=== PATIENT | female | born 1990 | race Caucasian/White ===

== ENCOUNTER 2017-06-09 13:43 | Outpatient (CLI) | payer BC ==
[2017-06-09] MEDS ORDERED: ACETAMINOPHEN 325 MG TAB PO PRN (14:15)
[2017-06-10] MEDS ORDERED: PRENTAB26 PO ×2 (01:04)
[2017-06-10] MEDS ORDERED: FLUT0.15 ×2 (01:05)
[2017-06-10] MEDS ORDERED: ALBU4TAB10 PO (01:06)
== END 2017-06-09 16:45 | disposition home or self-care (01) ==
LOC: C.OPB 13:43 → C.LD 13:44 → C.OPB 16:45 → EDSTATUS 06-12 13:42
PROVIDERS: ATTEND Obstetrics & Gynecology
DX: O62.9 Abnormality of forces of labor, unspecified (principal); Z3A.39 39 weeks gestation of pregnancy; Z22.330 Carrier of Group B streptococcus

== ENCOUNTER 2017-06-10 00:11 | Inpatient (IN) | payer BC ==
[~2017-06-10] VITALS: Ht 162.6 cm; Wt 86.5 kg
[2017-06-10] MEDS ORDERED: LACTATED RINGER'S 1000ML 1,000 ML IV PRN (00:23)
[2017-06-10] MEDS ORDERED: LACTATED RINGER'S 1000ML 1,000 ML IV SCH ×2 (00:23→08:14)
[2017-06-10] MEDS ORDERED: PENICILLIN G POTASSIUM IV 6 MU in DEXTROSE 5% 250ML 250 ML IV ONE (00:30)
[2017-06-10] MEDS ORDERED: PENICILLIN G POTASSIUM IV 3 MU in DEXTROSE 5% 100ML 100 ML IV PRN (00:30)
[2017-06-10] MEDS ORDERED: EpHEDrine SULFATE INJ 50 MG/ML AMP ONE (00:49)
[2017-06-10] MEDS ORDERED: FENTANYL CITRATE INJ 50 MCG/1 ML 2 ML VIAL ONE (00:49)
[2017-06-10] MEDS ORDERED: BUPIVACAINE 0.25% 30 ML VIAL ONE (00:49)
[2017-06-10] MEDS ORDERED: FENTANYL 2MCG/ML ROPIV 1.25MG/ML 100ML BAG EPI ONE (00:49)
[2017-06-10 00:55] LABS: HEMATOCRIT 33.4 % (37-47); MEAN CELL VOLUME 85.6 fL (80-100); MEAN CORPUSCULAR HEMOGLOBIN 29.2 pg (25-34); MEAN CORPUSCULAR HGB CONC 34.1 g/dl (32-36); MEAN PLATELET VOLUME 9.5 fL (7.4-10.4); PLATELET COUNT 225 K/uL (130-400); WHITE BLOOD COUNT 9.45 K/uL (4.8-10.8)
[2017-06-10] MEDS ORDERED: PRENTAB26 PO ×2 (01:04)
[2017-06-10] MEDS ORDERED: FLUT0.15 ×2 (01:05)
[2017-06-10 01:06] VITALS: Ht 162.6 cm; Wt 86.5 kg
[2017-06-10] MEDS ORDERED: ALBU4TAB10 PO (01:06)
[2017-06-10] MEDS ORDERED: NALOXONE HCL INJ 1 MG in SODIUM CHLORIDE 0.9% 1000ML 1,000 ML IV PRN (01:51)
[2017-06-10] MEDS ORDERED: LACTATED RINGER'S 1000ML 500 ML IV PRN (01:51)
[2017-06-10] MEDS ORDERED: ONDANSETRON INJ 2 MG/ML 2 ML VIAL IV PRN (02:00)
[2017-06-10] MEDS ORDERED: NALBUPHINE HCL INJ 10 MG/ML AMP IV PRN (02:00)
[2017-06-10] MEDS ORDERED: NALOXONE HCL INJ 0.4 MG/1 ML VIAL/CARP IV PRN (02:00)
[2017-06-10] MEDS ORDERED: DiphenhydrAMINE HCL 50 MG/ML VIAL IV PRN (02:00)
[2017-06-10] MEDS ORDERED: EpHEDrine SULFATE INJ 50 MG/ML AMP IV PRN (02:00)
[2017-06-10] MEDS ORDERED: FENTANYL 2MCG/ML ROPIV 1.25MG/ML 100ML BAG EPI PRN (02:00)
[2017-06-10] MEDS ORDERED: OXYTOCIN 30 UNITS/500ML NSS IV ONE (07:31)
[2017-06-10] MEDS ORDERED: MINERAL OIL 30 ML UDC ONE (07:44)
[2017-06-10] MEDS ORDERED: MISOPROSTOL 200 MCG TAB ONE (08:04)
[2017-06-10] MEDS ORDERED: METHYLERGONOVINE MALEATE 0.2 MG/ML AMP ONE (08:05)
[2017-06-10] MEDS ORDERED: OXYCODONE/ACETAMINOPHEN 5-325 TAB PO PRN (08:15)
[2017-06-10] MEDS ORDERED: OXYTOCIN 30 UNITS/500ML NSS IV PRN (08:15)
[2017-06-10] MEDS ORDERED: ACETAMINOPHEN 325 MG TAB PO PRN (08:15)
[2017-06-10] MEDS ORDERED: LANOLIN OINT EXT PRN ×2 (08:15)
[2017-06-10] MEDS ORDERED: METHYLERGONOVINE MALEATE 0.2 MG/ML AMP IM ONE (08:15)
[2017-06-10] MEDS ORDERED: BENZOCAINE 20% AER SPR 82.5 GM CAN EXT PRN (08:15)
[2017-06-10] MEDS ORDERED: HYDROCORTISONE ACETATE 25 MG SUPP PR PRN (08:15)
[2017-06-10] MEDS ORDERED: SUPERCREAM 0.870 % 15GM JAR EXT PRN (08:15)
[2017-06-10] MEDS ORDERED: MISOPROSTOL 200 MCG TAB PR SCH (08:15)
[2017-06-10] MEDS ORDERED: NURSING VERBAL MED ORDER ONE ×2 (09:45)
[2017-06-10] MEDS ORDERED: ALBUTEROL HFA 8 GM INHALER INH PRN (10:00)
--- NOTE | 2017-06-10 10:04 | DELIVERY SUMMARY ---
DATE OF OPERATION: 06/10/2017 TIME OF DELIVERY OF BABY: 0748 a.m. TIME OF DELIVERY OF PLACENTA: 0802 a.m. DETAILS OF DELIVERY: The patient was found to be fully dilated and desired to push. She pushed for only 2 contractions and delivery of the head without difficulty. Shoulders were delivered with minimal traction. The baby was handed off to the mother. Mouth and nose were suctioned. Cord was clamped x2 and cut at minute and cord blood was obtained and perineum and vagina were checked for lacerations. There was a small second-degree laceration in the posterior fourchette, which was repaired with 2-0 Vicryl in a running locked fashion. Excellent hemostasis was achieved and there was a very small first-degree laceration at the anterior region of labia minora superior to the urethral opening. It was repaired with 3-0 Vicryl on an SH needle with [id number] stitch and then placenta was found to be in the vagina and delivered spontaneously as intact and complete. Uterus was explored and found to have blood clots. Massage was started. IV oxytocin infusion was started. All the clots were emptied. No remains of placenta noted. Placenta was intact with intact membranes. Then 800 mcg of Cytotec was placed in the rectum and the patient was also given 0.2 mg of Methergine IM x1 and the uterus firm. EBL was than 500ml. Mom and baby tolerated the procedure well. Sponge, lap, needle and instruments were correct x2. Baby was a viable male infant. Apgars 9/10. Weight is 3335 gr. No complications happened and I was present during the whole procedure. I attest to the content of the Intraoperative Record and any orders documented therein. Any exceptions are noted below. MTDD
[2017-06-10 11:10] VITALS: BP 117/80; PULSE 80; TEMP 36.7
[2017-06-10] MEDS: METHYLERGONOVINE MALEATE 0.2 MG TAB PO SCH ×3 (12:31→20:05)
[2017-06-10 16:00] VITALS: BP 126/83; PULSE 76; TEMP 36.5
[2017-06-10] MEDS: DOCUSATE SODIUM 100 MG CAP PO SCH (20:06)
[2017-06-10 20:10] VITALS: BP 129/88; PULSE 73; TEMP 36.6
[2017-06-10] MEDS: IBUPROFEN 600 MG TAB PO PRN (22:20)
[2017-06-10 23:50] VITALS: BP 132/90; PULSE 76; TEMP 36.5; O2SAT 98
[2017-06-11] MEDS ORDERED: MUCINEX D PO PRN
[2017-06-11 03:25] VITALS: BP 126/91; PULSE 83; TEMP 37.1; O2SAT 99
[2017-06-11 07:15] LABS: HEMATOCRIT 32.5 % (37-47)
[2017-06-11 08:00] VITALS: BP 114/79; PULSE 92; TEMP 36.6
[2017-06-11] MEDS: PRENATAL VITAMIN TAB PO SCH (08:18)
[2017-06-11] MEDS: FERROUS SULFATE 325 MG TAB PO SCH (08:18)
[2017-06-11] MEDS: METHYLERGONOVINE MALEATE 0.2 MG TAB PO SCH (08:19)
[2017-06-11] MEDS: FLUTICASONE PROPIONATE NA SPR 16 GM BTL SCH (08:19)
[2017-06-11] MEDS: DOCUSATE SODIUM 100 MG CAP PO SCH ×2 (08:19→20:52)
[2017-06-11] MEDS ORDERED: MEASLES, MUMPS & RUBELLA VIRUS VIAL SQ. ONE (09:00)
--- NOTE | 2017-06-11 09:55 | OB/GYN Progress Note ---
RAIL EXPRESS CLERK Progress Note Date of Service Jun 11, 2017. Subjective conversation w/ patient, physical exam Ambulation: ambulating normally Voiding: no voiding problems Passing Gas: Yes Diet Tolerance: Regular Diet Lochia: Small Feeding Type: Bottle Feeding Objective Vital Signs Date Time Temp Pulse Resp B/P (MAP) Pulse Ox O2 Delivery O2 Flow Rate FiO2 06/11/17 08:00 36.6 92 18 114/79 (91) Room Air 06/11/17 03:25 37.1 83 16 126/91 (103) 99 Room Air 06/10/17 23:50 98 Room Air 06/10/17 23:50 36.5 76 18 132/90 (104) 98 Room Air 06/10/17 20:10 36.6 73 16 129/88 (102) Room Air 06/10/17 16:00 36.5 76 18 126/83 (97) Room Air 06/10/17 16:00 Room Air 06/10/17 11:10 36.7 80 22 117/80 (92) Physical Exam General Appearance: WELL-APPEARING, NO APPARENT DISTRESS Abdomen: non tender, soft Fundus: Firm Extremities: normal range of motion, normal inspection, no pedal edema, no calf tenderness Laboratory Results Last 24 Hours Test 06/11/17 06:54 Hemoglobin 10.9 g/dL Hematocrit 32.5 % Assessment and Plan Post- Day Number: 1 Continue Routine Care: tent d/c in AM
[2017-06-11] MEDS: IBUPROFEN 600 MG TAB PO PRN (10:02)
[2017-06-11 16:00] VITALS: BP 133/86; PULSE 87; TEMP 36.6
[2017-06-11] MEDS ORDERED: BISACODYL 5 MG TABEC PO SCH (20:00)
[2017-06-11 23:20] VITALS: BP 130/87; PULSE 79; TEMP 36.6
[2017-06-12 06:00] LABS: HEMATOCRIT 30.8 % (37-47); MEAN CELL VOLUME 88.3 fL (80-100); MEAN CORPUSCULAR HEMOGLOBIN 29.5 pg (25-34); MEAN CORPUSCULAR HGB CONC 33.4 g/dl (32-36); MEAN PLATELET VOLUME 9.1 fL (7.4-10.4); PLATELET COUNT 236 K/uL (130-400); RED BLOOD COUNT 3.49 M/uL (4.2-5.4); WHITE BLOOD COUNT 10.39 K/uL (4.8-10.8)
[2017-06-12] MEDS ORDERED: BISACODYL 10 MG SUPP PR PRN (07:00)
[2017-06-12] MEDS: DIPHTHERIA/TETANUS/PERTUSSIS 0.5 ML SYR/VIAL IM. ONE ×2 (07:29→12:00)
[2017-06-12] MEDS: PRENATAL VITAMIN TAB PO SCH (07:59)
[2017-06-12] MEDS: FLUTICASONE PROPIONATE NA SPR 16 GM BTL SCH (07:59)
[2017-06-12] MEDS: FERROUS SULFATE 325 MG TAB PO SCH (07:59)
[2017-06-12] MEDS: DOCUSATE SODIUM 100 MG CAP PO SCH (07:59)
[2017-06-12] MEDS ORDERED: MTR600X PO ×2 (11:00)
--- NOTE | 2017-06-12 11:01 | Discharge Instructions ---
Discharge Instructions Date of Service Jun 12, 2017. Admission Reason for Admission: Uterine Contractions At Greater Than 20 Weeks Gest Discharge Discharge Diagnosis / Problem: Vaginal Delivery Discharge Goals Goal(s): Routine recovery after delivery Medications Continue Dispensed Medications: supercream, dermaplast, tucks, lansinoh Activity Recommendations Activity Limitations: per Instructions/Follow-up section . Instructions / Follow-Up Instructions / Follow-Up ACTIVITY RECOMMENDATIONS: * Gradual return to full activity over the next 2-3 weeks. * No lifting - nothing heavier than baby over the next 2-3 weeks. * Do not engage in vigorous exercise, sexual activity or sports until cleared by your physician. * Do not drive or operate any motorized equipment until cleared by your physician. * You may shower/bathe daily. BREAST CARE: If you are not breast feeding: * Wear a supportive bra 24 hours a day for one to two weeks. * Avoid stimulating your breasts and nipples as much as possible during the first few weeks after delivery. * When taking a shower, have the warm water hit your back, not breasts. * When your breasts feel full, apply ice packs. Usually three to four times a day helps ease the discomfort. * Take a mild pain medication (Tylenol/Motrin) when you are uncomfortable. If breast feeding: * Use breast milk to lubricate nipples. Lansinoh cream may be used for sore nipples. You do not need to remove cream prior to breast feeding. If using a different brand of cream, check the label for directions regarding removal of cream prior to nursing. * Wear a supportive bra. * If having problems with breasts or breast feeding, call a erp consultant or your health care provider. EPISIOTOMY CARE: After delivery, if you have an episiotomy (stitches), the following steps will ease discomfort and aid healing. * For the first 24 hours after delivery, place ice packs next to your episiotomy to help reduce swelling. * After the first 24 hour-period, sitz baths, either portable or in the tub, are suggested. A shower with a shower arm sprayed over the episiotomy may be comforting. * [place] care should be done after each voiding and bowel movement. Squirt warm water from a plastic bottle over the perineum (region of the body between the anus and urinary opening) and pat dry. * Use Dermoplast to ease discomfort. Shake container. [place] directly over the episiotomy. * Place a Tucks on a clean sanitary pad next to your episiotomy. OVER THE COUNTER MEDICATION: * For discomfort or pain, you may use Acetaminophen (Tylenol), Ibuprofen (Advil ), or Naproxen (Aleve) following the package directions. * For constipation you may use Colace following the package directions. SPECIAL CARE INSTRUCTIONS: When you are discharged from the hospital, it is important for you to follow the instructions listed below: * During the first week at home, you should be able to care for yourself and your baby. In addition, the usual light household activities are encouraged. * Limit your activities to the way you feel. Do not try to clean the house or move furniture. Be sensible. * If you actively engage in sports and have done so up until the time of your delivery, you may resume these activities as soon as you feel able. This may take up to one month or even longer. Use good judgment. * Continue to take your vitamins for at least six weeks after the of your baby. * Your diet need not be limited unless you were on a special diet before your delivery. Breast-feeding mothers need around 2500 calories per day and at least 64-80 ounces of fluid per day (8 to 10 glasses). * You should eat foods from the four major food groups. Crash diets or fad diets are to be avoided. Eating lean meats, fresh fruits and vegetables, low-fat dairy products, high fiber foods and a regular exercise program, will help you get back to your pre- weight without putting your health at risk. * Constipation is sometimes a problem after delivery. Take a mild laxative as needed. If breast feeding, Milk of Magnesia is acceptable to use. You may use a suppository or Fleets enema if no episiotomy. * A daily shower or tub bath is suggested. Be sure to thoroughly and gently dry the perineum. * A bloody vaginal discharge will usually continue until around four weeks post . A small amount of bleeding may continue for as long as six weeks. Vaginal discharge changes from the bright red bleeding after delivery to pink then brownish and finally yellowish-pink before becoming white and disappearing. * Bleeding may increase with activity. Your first period may come in 4-8 weeks. If you are breast feeding, your period may be delayed even longer. * Halley (sex) can begin whenever both you and your partner feel comfortable and do not have any form of genital infection. It is recommended that you wait until after your return appointment and discuss with your physician. If you have questions, please talk to your health care practitioner. A condom should be used to prevent infection and . * Foreplay, gentle intercourse and lubrication is very important the first several times to prevent pain. A water-based lubricant such as K-Y jelly or Astroglide may be used. * Tampons may be used six weeks after delivery. * Douching should be avoided for 6 weeks after delivery. * If you have RH negative blood and your baby is RH positive, you will receive RHOGAM by injection prior to discharge. The nurse will give you a card to keep with you that has the date and place that you received RHOGAM after delivery. * During your care, you had a Rubella screen done to check for the presence of rubella antibodies in your blood. If your test was negative, you will receive a Rubella vaccine prior to discharge. This vaccine may cause a fever, soreness at the injection site and flu-like symptoms. If these symptoms persist, notify your health care practitioner. is not advised for three months after a Rubella vaccine. There is a higher chance of having a baby with defects if conceived within three months of getting the vaccine. * If you were discharged 24 hours from delivery or before 48 hours: Visiting nurses will come to your home 48 hours after discharge to assess you and your baby. The visiting nurse will meet with you while you are in the hospital to arrange a time and get directions to your home. * Verbalizes understanding of car seat law as reviewed with patient nursing. * Car Seat hand-out given and reviewed with patient by nursing. * Shaken baby information reviewed with patient by nursing. Call you doctor if: * Heavy bleeding (saturating several pads an hour) or passing clots the size of your fist. * A fever >101 degrees F (38.3 degrees C) on two occasions four hours apart and/or chills. * Unusual pain in the pelvic or vaginal areas. * "Baby Blues" lasting longer than two weeks. If you have any questions or concerns, call your health care practitioner at . FOLLOW-UP VISIT: * Please call the office at to schedule a 6 week examination. It is important you keep this appointment. * It is important for you to make arrangements for either yearly or twice yearly check-ups thereafter. Current Hospital Diet Patient's current hospital diet: Regular OB Diet Discharge Diet Recommended Diet: Regular OB Diet Pending Studies Studies pending at discharge: no Medical Emergencies . Who to Call and When: Medical Emergencies: If at any time you feel your situation is an emergency, please call 911 immediately. . Non-Emergent Contact Non-Emergency issues call your: Primary Care Provider, License Registration Examiner . . "Provider Documentation" section prepared by Fito Guthrie. . VTE Core Measure Inpt VTE Proph given/why not?: Treatment not indicated
--- NOTE | 2017-06-12 11:04 | OB/GYN Progress Note ---
ANALYTICAL DATA MINER Progress Note Date of Service Jun 12, 2017. Subjective conversation w/ patient Ambulation: ambulating normally Voiding: no voiding problems Passing Gas: Yes Diet Tolerance: Regular Diet Lochia: Small Feeding Type: Bottle Feeding Pain: 08/22 Notes: Doing well, no concerns. Has no pain. Tolerating regular diet. Ambulating without difficulty. Lochia minimal. Would like to go home today. Review of Systems Constitutional: No fever, No chills, No sweats, No weight loss, No weakness, No fatigue, No problem reported Respiratory: No cough, No sputum, No wheezing, No shortness of breath, No dyspnea on exertion, No dyspnea at rest, No hemoptysis, No problem reported Cardiac: No chest pain, No orthopnea, No PND, No edema, No claudication, No palpitations, No problem reported Abdomen: No pain, No nausea, No vomiting, No diarrhea, No constipation, No GI bleeding, No problem reported Female : No see HPI, No dysuria, No urinary frequency, No hematuria, No incontinence, No abnormal vaginal bleeding, No vaginal discharge, No problem reported Objective Vital Signs Date Time Temp Pulse Resp B/P (MAP) Pulse Ox O2 Delivery O2 Flow Rate FiO2 06/12/17 08:00 Room Air 06/11/17 23:20 36.6 79 20 130/87 (101) Room Air 06/11/17 23:20 Room Air 06/11/17 16:00 Room Air 06/11/17 16:00 36.6 87 16 133/86 (102) Room Air Laboratory Results Last 24 Hours Test 06/12/17 05:39 White Blood Count 10.39 K/uL Red Blood Count 3.49 M/uL Hemoglobin 10.3 g/dL Hematocrit 30.8 % Mean Corpuscular Volume 88.3 fL Mean Corpuscular Hemoglobin 29.5 pg Mean Corpuscular Hemoglobin Concent 33.4 g/dl RDW Standard Deviation 43.7 fL RDW Coefficient of Variation 13.7 % Platelet Count 236 K/uL Mean Platelet Volume 9.1 fL Assessment and Plan Post- Day Number: 2 Continue Routine Care: -D/C home today -F/U in 6 weeks.
[2017-06-12 12:00] VITALS: BP_DIAS 87; PULSE 79; TEMP 36.6
== END 2017-06-12 12:00 | disposition home or self-care (01) | DRG 775 ==
LOC: C.OPB 00:11 → C.LD 00:13 → C.OPB 00:27 → C.OBG 10:46
PROVIDERS: ADMIT Obstetrics & Gynecology; ATTEND Obstetrics & Gynecology
PROC: 0KQM0ZZ Repair Perineum Muscle, Open Approach (ICD-10-PCS; principal; 2017-06-10)
PROC: 10E0XZZ Delivery of Products of Conception, External Approach (ICD-10-PCS; principal; 2017-06-10)
DX: O70.1 Second degree perineal laceration during delivery (principal); O99.824 Streptococcus B carrier state complicating childbirth; Z37.0 Single live birth; Z3A.39 39 weeks gestation of pregnancy

== ENCOUNTER 2019-01-21 17:54 | Inpatient (IN) ==
[2019-01-21] MEDS: LACTATED RINGER'S 1,000 ML IV PRN ×2 (18:00→19:55)
[2019-01-21] MEDS ORDERED: PENICILLIN G POTASSIUM 3 MU in DEXTROSE 5% 100 ML IV PRN (18:05)
[2019-01-21] MEDS ORDERED: OXYTOCIN 30 UNITS/500 ML BAG IV PRN ×2 (18:05→23:02)
[2019-01-21] MEDS ORDERED: TERBUTALINE SULFATE 1 MG/ML VIAL SQ ONE (18:07)
--- NOTE | 2019-01-21 18:13 | History & Physical Report ---
Date of Service January 21, 2019 Assessment & Plan (1) Uterine contractions at greater than 20 weeks of gestation: 28 YO at 39.6 wks in early labor GBS + FHR reassuring Plan admit, monitor, labs, PCN for GBS Anticipate (2) GBS (group B Streptococcus carrier), +RV culture, currently : History of Present Illness Chief Complaint: Contractions Primary Care Provider: NO PCP Patient is a 28 yo at 39.6 wks , started to have ctxs this morning, got closer and more regular this afternoon She was in the office and had reactive NST, cervix was checkedx2 and changed from 3 to 4 cm No LOF/VB +FM Her has been uncomplicated except: 1) Asthma, mild, on albuterol prn 2) GBS + Allergies Allergy/AdvReac Type Severity Reaction Status Date / Time Sulfa (Sulfonamide Allergy Intermediate HIVES Verified 06/11/17 20:52 Antibiotics) Patient History OB History 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
[2019-01-21] MEDS ORDERED: PENICILLIN G POTASSIUM 6 MU in DEXTROSE 5% 250 ML IV ONE (18:30)
[2019-01-21] MEDS ORDERED: ePHEDrine sulfate 50 MG/ML AMP IV PRN (18:34)
[2019-01-21] MEDS ORDERED: ONDANSETRON INJ 2 MG/ML 2 ML VIAL IV PRN (18:34)
[2019-01-21] MEDS ORDERED: NALOXONE HCL 1 MG in SODIUM CHLORIDE 0.9% 1000ML 1,000 ML IV PRN (18:34)
[2019-01-21] MEDS ORDERED: NALOXONE HCL 0.4 MG/1 ML VIAL/CARP IV PRN (18:34)
[2019-01-21] MEDS ORDERED: DiphenhydrAMINE HCL 50 MG/ML VIAL IV PRN (18:34)
[2019-01-21] MEDS ORDERED: fentaNYL 2MCG/ML ROPIV 1.25MG/ML 100 ML BAG EPI PRN (18:34)
[2019-01-21] MEDS ORDERED: NALBUPHINE HCL INJ 10 MG/ML AMP IV PRN (18:34)
--- NOTE | 2019-01-21 18:35 | Anesthesiology Consultation ---
Date of Service January 21, 2019 Assessment & Plan (1) Encounter for pre-operative examination: Chart Review Chart Review: Patient NOT seen in Pre Admission Testing and Acceptable Risk for Labor Epidural Consults Requested none History Height/Weight Height: 5 ft 4 in Weight: 88.451 kg Allergies Allergy/AdvReac Type Severity Reaction Status Date / Time Sulfa (Sulfonamide Allergy Intermediate HIVES Verified 06/11/17 20:52 Antibiotics) Medications Home Medications Medication Instructions Recorded Confirmed Last Taken albuterol sulfate [Ventolin HFA] 1 inh INHALATION ONCE 01/21/19 01/21/19 01/20/19 23:00 Active Medications Generic Name Dose Route Start Last Admin Trade Name Freq PRN Reason Stop Dose Admin Lactated Ringer's 1,000 mls @ 150 mls/hr 01/21/19 18:05 01/21/19 18:00 Lr IV 01/23/19 18:04 150 mls/hr .[id number] PRN Administration L&D Protocol Protocol Penicillin G Potassium 6 mu/ 262 mls @ 262 mls/hr 01/21/19 18:30 01/21/19 18:51 Dextrose IV 01/21/19 19:29 262 mls/hr TODAY@1830 ONE Administration Past Medical History Medical History Asthma Exercise / Class Metabolic Activity II 4-5 Yardwork/Stairs/Walk up hill Past Surgical History none Past Anesthesia History No Hx of Anesthesia Complications, Malignant Hyperthermia and No Family Hx of Anesthesia Complications History of PONV No Hx of PONV and No Hx of Motion Sickness Social History Smoking Status: Never smoker Hx Alcohol Use: No Hx Substance Use: No Physical Exam Vital Signs Last Vital Signs Pulse 90 01/21/19 17:57 Resp 20 01/21/19 18:11 BP 138/80 01/21/19 17:57 Testing Laboratory Results 01/21/19 18:27
[2019-01-21 18:40] LABS: Hematocrit (blood only) 32.7 % (37-47); Hemoglobin 11.3 g/dL (12.0-16.0); Mean Corpuscular Hgb Conc 34.6 g/dL (32-36); Mean Corpuscular Volume 88.4 fL (80-100); Mean Platelet Volume 9.3 fL (7.4-10.4); Platelet Count 221 K/uL (130-400); RDW Coefficient of Variation 13.4 % (11.5-14.5); RDW Standard Deviation 43.6 fL (36.4-46.3); White Blood Count 9.36 K/uL (4.8-10.8)
[2019-01-21] MEDS ORDERED: BUPIVACAINE 0.25% 30 ML VIAL ONE (18:54)
[2019-01-21] MEDS ORDERED: ePHEDrine sulfate 50 MG/ML AMP ONE (18:54)
[2019-01-21] MEDS ORDERED: fentaNYL 2MCG/ML ROPIV 1.25MG/ML 100 ML BAG EPI ONE (18:55)
[2019-01-21] MEDS ORDERED: fentaNYL citrate 100 MCG/2 ML VIAL ONE (18:55)
[2019-01-21] MEDS ORDERED: METHYLERGONOVINE MALEATE 0.2 MG/ML AMP ONE (22:58)
[2019-01-21] MEDS ORDERED: SUPERCREAM 0.870% 15 GM JAR EXT PRN (23:02)
[2019-01-21] MEDS ORDERED: ACETAMINOPHEN 325 MG TAB PO PRN (23:02)
[2019-01-21] MEDS ORDERED: BISACODYL 10 MG SUPP PR PRN (23:02)
[2019-01-21] MEDS ORDERED: BENZOCAINE 20% AER SPR 82.5 GM CAN EXT PRN (23:02)
[2019-01-21] MEDS ORDERED: HYDROCORTISONE ACETATE 25 MG SUPP PR PRN (23:02)
[2019-01-21] MEDS ORDERED: miSOPROStol 200 MCG TAB PR ONE (23:02)
[2019-01-21] MEDS ORDERED: DIPHTHERIA/TETANUS/PERTUSSIS 0.5 ML SYR/VIAL IM ONE (23:02)
[2019-01-21] MEDS ORDERED: LACTATED RINGER'S 1,000 ML IV SCH (23:15)
[2019-01-21] MEDS ORDERED: miSOPROStol 200 MCG TAB ONE (23:37)
--- NOTE | 2019-01-22 01:39 | Delivery Summary ---
DATE OF OPERATION: 01/21/2019 TIME: 2244 TIME OF DELIVERY OF PLACENTA: 2253 DETAILS OF DELIVERY: The patient was found to have a dilated and desired to push. She pushed with only 1 contraction and delivered the head without difficulty. Shoulders came right after the head by themselves. The infant was handed to the mother where mouth and nose were suctioned. Cord was clamped x2 and cut. It was short and 3-vessel cord. Cord blood was obtained and then the vagina and perineum were checked for lacerations. Perineum and vagina were intact. There was a very small first-degree laceration where the labia fused superiorly 1 cm superior to the urethral orifice. It was repaired with [id number] stitch x1 with 3-0 Vicryl on SH needle. Excellent hemostasis was achieved. Rest of the vagina and perineum were intact. Placenta was found to be in the vagina and delivered spontaneously as intact and complete. Uterus was explored and found to be empty. Lower segment was cleared of all walled off all clots and debris. Fundus was firm after massage. Estimated blood loss was 200 mL. I.V. oxytocin was started. Rectal Cytotec was placed. Mother and baby tolerated the procedure well. Sponge, lap and needle count were correct x2. Baby was a viable female , Apgars 8/9. Weight is 3364 gr. No complications happened and I was present during whole procedure. I attest to the content of the Intraoperative Record and any orders documented therein. Any exceptions are noted below. SARINAD
--- NOTE | 2019-01-22 02:44 | Anesthesia Procedure Note ---
Date of Service January 22, 2019 Anesthesia Post Epidural Note Vital Signs Vital Signs: Temp Pulse Resp BP Pulse Ox 36.8 C 115 H 18 125/68 99 01/21/19 22:30 01/22/19 01:00 01/22/19 01:00 01/22/19 01:00 01/21/19 22:43 Notes Mental Status: alert / awake / arousable Patient Amnestic to Procedure: No Nausea / Vomiting: adequately controlled Pain: adequately controlled Airway Patency, RR, SpO2: stable & adequate BP & HR: stable & adequate Hydration State: stable & adequate Neuraxial Anesthesia: was administered and sensory block resolved Anesthetic Complications: no major complications apparent and Pt Satisfied with anesthetic care Epidural: Removed without complications and With tip intact
[2019-01-22 06:30] LABS: Hematocrit (blood only) 30.4 % (37-47); Hemoglobin 10.5 g/dL (12.0-16.0); Mean Corpuscular Hgb Conc 34.5 g/dL (32-36); Mean Corpuscular Volume 88.9 fL (80-100); Mean Platelet Volume 9.4 fL (7.4-10.4); Platelet Count 217 K/uL (130-400); RDW Coefficient of Variation 13.6 % (11.5-14.5); RDW Standard Deviation 43.8 fL (36.4-46.3); Red Blood Count 3.42 M/uL (4.2-5.4); White Blood Count 12.75 K/uL (4.8-10.8)
--- NOTE | 2019-01-22 08:11 | Obstetrical Progress Note ---
Date of Service January 22, 2019 Subjective doing well Physical Exam Constitutional: WD/WN, vitals as above fundus firm no edema neg Robert's Results & Data Vital Signs (Past 12 Hours) Vital Signs Temp Pulse Pulse Resp BP BP Pulse Ox 01/22/19 03:20 36.5 C 94 H 16 126/78 97 01/22/19 01:40 36.6 C 99 H 18 118/77 97 01/22/19 01:00 115 H 18 125/68 01/22/19 00:45 102 H 126/60 01/22/19 00:15 95 H 115/79 01/22/19 00:00 101 H 18 117/80 01/21/19 23:47 99 H 114/80 01/21/19 23:31 93 H 128/61 01/21/19 23:16 88 111/69 01/21/19 23:04 92 H 18 103/59 L 01/21/19 22:57 90 126/61 01/21/19 22:43 101 H 99 01/21/19 22:38 83 100 01/21/19 22:33 100 H 100 01/21/19 22:30 36.8 C 18 01/21/19 22:28 105 H 135/85 99 01/21/19 22:23 93 H 100 01/21/19 22:18 75 99 01/21/19 22:13 81 98 01/21/19 22:11 82 110/65 01/21/19 22:08 78 99 01/21/19 22:03 80 98 01/21/19 21:58 85 18 125/67 98 01/21/19 21:53 82 97 01/21/19 21:48 75 100 01/21/19 21:43 70 99 01/21/19 21:41 73 116/76 01/21/19 21:38 72 100 01/21/19 21:33 83 99 01/21/19 21:28 88 18 100 01/21/19 21:26 83 123/78 01/21/19 21:23 80 98 01/21/19 21:18 82 98 01/21/19 21:13 86 99 01/21/19 21:12 75 117/69 01/21/19 21:08 79 99 01/21/19 21:03 83 99 01/21/19 20:58 81 18 99 01/21/19 20:57 73 122/81 01/21/19 20:53 86 100 01/21/19 20:48 87 100 01/21/19 20:43 95 H 98 01/21/19 20:42 77 114/77 01/21/19 20:38 90 98 01/21/19 20:33 95 H 99 01/21/19 20:28 90 98 01/21/19 20:26 81 18 116/78 01/21/19 20:23 90 96 01/21/19 20:18 91 H 98 01/21/19 20:13 85 98 01/21/19 20:12 89 115/77
[2019-01-22] MEDS: IBUPROFEN 600 MG TAB PO PRN ×2 (08:36→20:00)
[2019-01-22] MEDS: DOCUSATE SODIUM 100 MG CAP PO SCH ×2 (08:36→20:00)
[2019-01-22] MEDS: PRENATAL VITAMIN 1 TAB PO SCH (08:36)
[2019-01-22] MEDS: FERROUS SULFATE 325 MG TAB PO SCH (08:36)
[2019-01-22] MEDS ORDERED: BISACODYL 5 MG TABEC PO SCH (20:00)
[2019-01-23 07:20] LABS: Hematocrit (blood only) 31.9 % (37-47)
[2019-01-23] MEDS: PRENATAL VITAMIN 1 TAB PO SCH (07:53)
[2019-01-23] MEDS: FERROUS SULFATE 325 MG TAB PO SCH (07:53)
[2019-01-23] MEDS: DOCUSATE SODIUM 100 MG CAP PO SCH (07:55)
[2019-01-23] MEDS: IBUPROFEN 600 MG TAB PO PRN (07:55)
--- NOTE | 2019-01-23 11:01 | Obstetrical Progress Note ---
Date of Service January 23, 2019 Assessment & Plan (1) normal course: PPD #2 Pt doing well No complaints disch home with instructions Subjective Ambulation: ambulating normally Voiding: no voiding problems Passing Gas:: Yes Diet Tolerance:: regular diet Lochia:: Small Feeding Type:: breast feeding Review of Systems All systems reviewed & are unremarkable except as noted in HPI & below Physical Exam Constitutional WD/WN, vitals as above well developed and well nourished Eyes PERRL, conjunctivae normal, anicteric sclerae Neck trachea midline, no thyromegaly Respiratory normal respiratory effort, lungs clear to auscultation Auscultation: no crackles, no rales and no wheezes Cardiovascular RRR, no murmur, no edema Gastrointestinal (Abdomen) normal bowel sounds, soft, nontender, no hepatosplenomegaly Uterus is below umbilicus Musculoskeletal no cyanosis or clubbing, extremities motor strength 5/5 Skin no rashes, warm and dry Neurologic patellar DTR's 2+ bilat, sensation intact Psychiatric A+Ox3, euthymic affect Genitourinary normal external appearance Results & Data Vital Signs (Past 12 Hours) Vital Signs Temp Pulse Resp BP 01/23/19 07:30 36.7 C 81 20 121/82 01/23/19 00:00 36.8 C 81 18 123/81
== END 2019-01-23 13:05 | disposition home or self-care (01) | DRG 807 ==
LOC: OPB 17:54 → 4S1 17:55 → 4S2 01-22 01:20